=== PATIENT | male | born 1965 | race Caucasian/White ===

== ENCOUNTER 2016-07-12 09:13 | Emergency (ER) | payer MEDICAID ==
[~2016-07-12] VITALS: Ht 167.6 cm; Wt 77.1 kg
[2016-07-12 21:00] VITALS: BP 130/66
== END 2016-07-12 21:45 | disposition left against medical advice (07) ==
LOC: ER 09:15
DX: F10.129 Alcohol abuse with intoxication, unspecified (principal); F17.200 Nicotine dependence, unspecified, uncomplicated; F31.9 Bipolar disorder, unspecified; R51 Headache
CPT/HCPCS: 36415; 70450; 99285; A4606; G0480; Z7610

== ENCOUNTER 2020-04-14 18:34 | Emergency (ER) | payer MEDICAID, OTHER ==
[~2020-04-14] VITALS: Ht 165.1 cm; Wt 63.5 kg
[2020-04-14] MEDS ORDERED: ACETAMINOPHEN 325 MG TABLET PO ONE (19:00)
[2020-04-14] MEDS ORDERED: TDAP [DIPH/PERTUSSIS/TET] 0.5 ML VIAL IM ONE ×2 (19:00→19:02)
[2020-04-14] MEDS ORDERED: ACETAMINOPHEN 325 MG TABLET ONE (19:02)
--- NOTE | 2020-04-14 20:16 | NUR ---
Took over pt care. Pt was in the E.D. tent. Patient discharged to home in stable condition. Written and verbal after care instructions given. Patient verbalizes understanding of instruction. Pt refused to leave. security was called. Pt was able to ambulate with steady gait.
[2020-04-14 20:23] VITALS: BP 131/79
== END 2020-04-14 20:23 | disposition home or self-care (01) ==
LOC: ER 18:34
DX: S02.2XXA Fracture of nasal bones, initial encounter for closed fracture (principal); S00.83XA Contusion of other part of head, initial encounter; U07.1 COVID-19; Z59.0 Homelessness; F31.9 Bipolar disorder, unspecified; F17.200 Nicotine dependence, unspecified, uncomplicated; Y04.0XXA Assault by unarmed brawl or fight, initial encounter; Y93.89 Activity, other specified; Y92.89 Other specified places as the place of occurrence of the external cause; Y99.8 Other external cause status
CPT/HCPCS: 70450-TC; 70486-TC; 90715